=== PATIENT | female | born 2005 | race Two or more races ===

== ENCOUNTER → 2025-09-02 11:15 | Outpatient (CLI) | payer OTHER | END | disposition home or self-care (01) | LOC: PRENATAL 11:15 | PROVIDERS: ATTEND Obstetrics & Gynecology Maternal & Fetal Medicine | DX: O36.80X0 Pregnancy with inconclusive fetal viability, not applicable or unspecified (principal); O26.859 Spotting complicating pregnancy, unspecified trimester; Z3A.01 Less than 8 weeks gestation of pregnancy ==

== ENCOUNTER 2025-10-01 14:22 | Emergency (ER) | payer OTHER ==
[~2025-10-01] VITALS: Ht 160 cm; Wt 59.4 kg
[2025-10-01] MEDS ORDERED: PANTOPRAZOLE SODIUM 40 MG/VIAL VIAL IV PUSH ONE (16:15)
[2025-10-01] MEDS ORDERED: ONDANSETRON HCL 2 MG/ML VIAL IM ONE (16:15)
[2025-10-01] MEDS ORDERED: ONDANSETRON HCL 2 MG/ML VIAL ONE (18:02)
[2025-10-01 18:29] LABS: BASO % 0.5 % (0.1-1.2); EOS # 0.13 (0.04-0.54); EOS % 1.4 % (0.7-7.0); LYMPH # 1.75 (1.18-3.74); LYMPH % 18.9 % (19.3-53.1); MEAN PLATELET VOLUME 9.40 fl (9.4-12.4); MONO # 0.51 (0.24-0.82); MONO % 5.5 % (4.7-12.5); NEUT # 6.81 (1.56-6.13); NEUT % 73.5 % (34.0-71.1); RED CELL DISTRIBUTION WIDTH 15.2 % (11.6-14.4)
[2025-10-01 19:02] LABS: ALT/SGPT 41 U/L (12-78); AST/SGOT 20 U/L (15-37); BILIRUBIN TOTAL 0.31 mg/dL (0.3-1.2); BILIRUBIN,CONJUGATED < 0.10 mg/dL (0.0-0.2); BUN CREA RATIO 15 (7.0-25.0); CREATININE SERUM 0.55 mg/dL (0.55-1.02); GFR 139.53; GLOBULINA 4.5 G/DL (2.4-3.5); GLUCOSE FASTING 84 mg/dL (65-100); OSMOLALITY SERUM 273 MOSM/KG (275-295)
[2025-10-01] MEDS ORDERED: PROTONIX40 MG PO (19:15)
[2025-10-01] MEDS ORDERED: DICLEGIS DR 101 EACH PO (19:15)
[2025-10-01] MEDS ORDERED: POVIDONE-IODINE 118 ML BOTT TOP ONE (19:48)
== END 2025-10-01 23:05 | disposition home or self-care (01) ==
LOC: ER 14:22
PROVIDERS: General Practice
DX: O26.91 Pregnancy related conditions, unspecified, first trimester (principal); K21.9 Gastro-esophageal reflux disease without esophagitis; R10.9 Unspecified abdominal pain

== ENCOUNTER → 2025-10-20 10:38 | Outpatient (CLI) | payer OTHER ==
[~2025-10-20 10:38] MED LIST: DICLEGIS DR 101 EACH PO; PROTONIX40 MG PO
== END | disposition home or self-care (01) ==
LOC: PRENATAL 10:38
PROVIDERS: ATTEND Obstetrics & Gynecology Maternal & Fetal Medicine
DX: O36.80X0 Pregnancy with inconclusive fetal viability, not applicable or unspecified (principal); Z36.82 Encounter for antenatal screening for nuchal translucency; Z14.8 Genetic carrier of other disease; Z3A.13 13 weeks gestation of pregnancy

== ENCOUNTER 2025-11-12 10:27 | Emergency (ER) | payer OTHER ==
[~2025-11-12] VITALS: Ht 160 cm; Wt 106.6 kg
[2025-11-12] MEDS ORDERED: PRENATA CHEWAB1 EACH PO (12:18)
[2025-11-12] MEDS ORDERED: PEPCID AC20 MG (12:18)
[2025-11-12] MEDS ORDERED: ACETAMINOPHEN 500 MG GEL..CAP PO ONE (12:45)
[2025-11-12 13:06] LABS: BASO % 0.3 % (0.1-1.2); EOS # 0.13 (0.04-0.54); EOS % 1.4 % (0.7-7.0); LYMPH # 1.47 (1.18-3.74); LYMPH % 15.6 % (19.3-53.1); MEAN PLATELET VOLUME 9.50 fl (9.4-12.4); MONO # 0.65 (0.24-0.82); MONO % 6.9 % (4.7-12.5); NEUT # 7.13 (1.56-6.13); NEUT % 75.5 % (34.0-71.1); RED CELL DISTRIBUTION WIDTH 14.7 % (11.6-14.4)
== END 2025-11-12 14:50 | disposition home or self-care (01) ==
LOC: ER 10:28
PROVIDERS: General Practice
DX: O20.8 Other hemorrhage in early pregnancy (principal); Z3A.16 16 weeks gestation of pregnancy